=== PATIENT | male | born 1985 | race African-American/Black ===

== ENCOUNTER 2019-09-05 13:22 | Emergency (ER) | payer SELFPAY ==
[~2019-09-05] VITALS: Ht 177.8 cm; Wt 77.1 kg
[2019-09-05] MEDS ORDERED: OLANZAPINE 10 MG VIAL IM ONE (13:29)
[2019-09-05] MEDS ORDERED: LORAZEPAM INJ 2 MG/ML VIAL ONE (13:31)
--- NOTE | 2019-09-05 13:34 | NUR ---
AGITATED, MARSI PAINTING INSTRUCTOR AT BEDSIDE W/ VERBAL ORDER FOR ZYPREXIA 5MG IM AND ATIVAN 2MG IM. CARRIED OUT.
[2019-09-05] MEDS: OLANZAPINE 10 MG VIAL IM ONE ×2 (13:36→14:14)
--- NOTE | 2019-09-05 14:00 | NUR ---
PT APPEARS TO BE RESTING COMFORTABLY. PT IS ON THE MONITOR AND POX. PT IS ANSWERING YES AND NO QUESTIONS.
[2019-09-05] MEDS ORDERED: LIDOCAINE 2% JEL UROJET 10 ML MM ONE ×2 (14:15→14:30)
--- NOTE | 2019-09-05 14:23 | NUR ---
STRAIGHT CATH DONE AND APPROX 200 ML YELLOW URINE OUTPUT NOTED. SAMPLE SENT TO LAB.
[2019-09-05] MEDS ORDERED: LORAZEPAM INJ 2 MG/ML VIAL IM ONE (14:30)
[2019-09-05 14:46] LABS: BASOPHILS # (AUTO) 0.3 /CMM (0.0-0.2); BASOPHILS % (AUTO) 4.1 % (0.0-2.0); EOSINOPHILS % (AUTO) 1.4 % (0.0-6.0); HEMATOCRIT 39 % (39-51); LYMPHOCYTES # (AUTO) 1.5 /CMM (0.8-4.8); LYMPHOCYTES % (AUTO) 20.8 % (20.0-44.0); MEAN CORPUSCULAR HGB CONC 34 g/dl (31.0-36.0); MEAN CORPUSCULAR VOLUME 97 fL (80-96); MONOCYTES # (AUTO) 0.4 /CMM (0.1-1.30); NEUTROPHILS # (AUTO) 5.1 /CMM (1.8-8.9); NEUTROPHILS % (AUTO) 68.7 % (43.0-81.0); PLATELET COUNT (AUTO) 235 /CMM (150-450); RED BLOOD CELL COUNT(AUTO) 3.98 MIL/uL (4.5-6.0); WHITE BLOOD COUNT (AUTO) 7.5 K/uL (4.3-11.0)
[2019-09-05 14:48] LABS: APPEARANCE,URINE Cloudy (CLEAR); BILIRUBIN,URINE Negative (NEGATIVE); BLOOD, URINE Negative Ery/uL (NEGATIVE); COLOR,URINE Yellow (YELLOW); KETONES,URINE Negative (NEGATIVE); LEUKOCYTE ESTERASE ,URINE Negative (NEGATIVE); NITRITE, URINE Negative (NEGATIVE); PROTEIN,URINE Negative (NEGATIVE); UGLUCOSE Negative (NEGATIVE)
[2019-09-05 15:10] LABS: ALCOHOL, BLOOD < 3 mg/dL (0-0)
--- NOTE | 2019-09-05 15:29 | NUR ---
PT APPEARS TO BE RESTING COMFORTABLY WITH NO S/S OF PAIN OR DISTRESS NOTED. SITTER IS AT THE BEDSIDE.
[2019-09-05 15:36] LABS: BACTERIA,URINE 3+ /HPF (None Seen); RBC,URINE 0-2 /HPF (0-2)
[2019-09-05 15:37] LABS: SQUAMOUS EPITHELIAL CELL,UR Few /HPF (None Seen)
[2019-09-05 15:44] LABS: CARBON DIOXIDE 22 mmol/L (21-32); CHLORIDE 104 mmol/L (98-107); POTASSIUM 3.8 mmol/L (3.5-5.1); SODIUM SERUM 140 mmol/L (136-145)
[2019-09-05 15:53] LABS: ALANINE AMINOTRANSFERASE 132 U/L (12-78); BILIRUBIN,DIRECT 0.2 mg/dL (0.0-0.2)
[2019-09-05 15:54] LABS: ALBUMIN 3.8 g/dL (3.4-5.0); ALKALINE PHOSPHATASE 95 U/L (46-116); ASPARTATE AMINOTRANSFERASE 89 U/L (15-37); BILIRUBIN,TOTAL 0.9 mg/dL (0.2-1.0); CALCIUM, SERUM 8.9 mg/dL (8.5-10.1); CREATININE 0.9 mg/dL (0.6-1.3); GLUCOSE 85 mg/dL (74-106); UREA NITROGEN, BLOOD 19 mg/dL (7-18)
[2019-09-05 15:55] LABS: ACETAMINOPHEN 0 ug/ml (10-30); TOTAL PROTEIN, SERUM 7.2 g/dL (6.4-8.2)
--- NOTE | 2019-09-05 16:35 | NUR ---
PT APPEARS TO BE SLEEPING SOUNDLY WITH NO S/S OF PAIN OR DISTRESS. JIMMY CURRY/LISET, IS AT THE BEDSIDE.
--- NOTE | 2019-09-05 16:35 | NUR ---
Manuel cummins in EDM - 09/05/19 at 1636 by [email or web address] PT APPEARS TO BE RESTING COMFORTABLY, BUT STATED THAT HE IS HAVING SOME ABD DISCOMFORT IN THE RUQ. 09/05. VSS.
--- NOTE | 2019-09-05 17:51 | NUR ---
PT APPEARS TO BE SLEEPING SOUNDLY WITH NO S/S OF PAIN OR DISTRESS.
--- NOTE | 2019-09-05 18:23 | NUR ---
LISET STATED THAT THE PT WANTED SOMETHING TO EAT. TRIED TO WAKE PT UP, BUT PT CONTINUED TO SLEEP. WILL TRY AGAIN LATER. VSS.
[2019-09-05] MEDS ORDERED: CEFTRIAXONE 500 MG VIAL ONE (18:29)
[2019-09-05] MEDS ORDERED: AZITHROMYCIN 250 MG TABLET ONE (18:29)
[2019-09-05] MEDS ORDERED: LIDOCAINE /MPF 1% VIAL 5 ML VIAL ONE (18:29)
[2019-09-05] MEDS ORDERED: AZITHROMYCIN 250 MG TABLET PO ONE (18:30)
[2019-09-05] MEDS ORDERED: CEFTRIAXONE 500 MG VIAL IM ONE (18:30)
--- NOTE | 2019-09-05 18:43 | NUR ---
PT REC'D IM ROCEPHIN ORDERED. PT IS TO SLEEPY TO TAKE ZITHROMYCIN PO. FOOD TRAY ORDERED FOR PT.
--- NOTE | 2019-09-05 19:02 | NUR ---
DINNER TRAY ORDERED FOR PT. PT IS STILL TOO SLEEPY TO EAT
--- NOTE | 2019-09-05 21:07 | NUR ---
PT IS STILL SLEEPING SOUNDLY WITH NO S/S OF PAIN OR DISTRESS. SITTER IS AT THE BEDSIDE. VSS
--- NOTE | 2019-09-05 23:28 | NUR ---
PT TO GET ZITHROMYCIN PO ONCE HE IS AWAKE.
--- NOTE | 2019-09-06 00:48 | NUR ---
PT APPEARS TO BE SLEEPING SOUNDLY WITH NO S/S OF PAIN OR DISTRESS. SITTER IS AT THE BEDSIDE.
--- NOTE | 2019-09-06 01:05 | NUR ---
PT WOKE UP AND WANTED TO EAT AND BE "RELEASED". PT REC'D A MEAL TRAY. PT STATED THAT HE WAS NOT SI OR HI. PT IS TOLERATING PO WELL.
--- NOTE | 2019-09-06 01:15 | NUR ---
PT WAS ABLE TO TELL ME HIS NAME WAS PHILIP CLINTON AND HIS BIRTHDAY WAS [birth year]. PT STATED THAT HE WAS HOMELESS. 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 PT WANTS TO BE DISCHARGED. PT REC'D A TAP CARD AND THE [employer]OM[employer]ESS RESOURCE PACKAGE. PT REQUESTED MORE FOOD. PT REC'D A SANDWICH AND JUICE.
[2019-09-06 01:44] VITALS: BP 124/64
--- NOTE | 2019-09-06 01:44 | NUR ---
Patient discharged to home in stable condition. Written and verbal after care instructions given. Patient verbalizes understanding of instruction. PT WAS TOLD THAT IT WAS RAINING AND PT WANTS TO LEAVE ANYWAY. VSS.
--- NOTE | 2019-09-06 01:59 | NUR ---
PT AMBULATED OUT WITH A STEADY GAIT.
== END 2019-09-06 01:59 | disposition home or self-care (01) ==
LOC: ER 13:24 → EDBD 13:24 → ER 09-06 01:59
DX: F15.10 Other stimulant abuse, uncomplicated (principal); R41.82 Altered mental status, unspecified; R45.1 Restlessness and agitation; Z11.3 Encounter for screening for infections with a predominantly sexual mode of transmission; Z59.0 Homelessness
CPT/HCPCS: 36415; 80048; 80076; 80305; 80307; 80329; 81001; 85025; 87077; 87086; 87186; 87491; 87591; 96372 ×2; 99285; G0480; J0696; J2060; J3490 ×3; 81000-TC